=== PATIENT | male | born 1950 | race African-American/Black ===

== ENCOUNTER 2017-08-12 10:35 | Emergency (ER) | payer OTHER ==
[~2017-08-12] VITALS: Ht 170.2 cm; Wt 129.3 kg
--- NOTE | ~2017-08-12 | EKG ---
[place] [address] Code [facility] [place] [address] ELECTROCARDIOGRAM REPORT Name: FADI BOO [facility] [id number] Admission: 08/12/17 Attend Phys: Discharge: 08/12/17 Date of : 50 Report #: [id number] THIS REPORT FOR: //name// [facility] ED Test Date: 2017-08-12 Test Time: 11:37:47 Pat Name: FADI BOO Department: Room: Gender: Heel Seat Sander: Jose Juan GARSIA : 1950 Requested By: Yoselin Weller Order Number: [id number] MD: Valentin Song Measurements Intervals [place] Rate: 82 P: 67 MS: 256 QRS: 11 QRSD: 84 T: 58 QT: 391 QTc: 457 Interpretive Statements Sinus rhythm Prolonged MS interval Compared to ECG 04/21/1995 09:26:00 First degree AV block now present Electronically Signed On 08-13-2017 8:05:35 CDT by Valentin Song [email or web address] <ELECTRONICALLY SIGNED> By: Valentin Song MD, [facility] 08/13/17 [id number] Valentin Song MD, FACC /EPI
[2017-08-12 11:18] LABS: ABSOLUTE NEUTROPHILS 8.9 thou/uL (1.4-8.2); BASOPHILS 0.5 % (0.0-2.0); EOSINOPHILS 2.9 % (0.0-3.0); HEMATOCRIT 40.8 % (42.0-52.0); HEMOGLOBIN 13.5 gm/dL (14.0-18.0); LYMPHOCYTES 15.1 % (24.0-44.0); MCHC 33.2 g/dL (28.0-37.0); MCV 87.3 fL (80.0-100.0); MONOCYTES 6.4 % (1.0-8.0); PLATELET COUNT 248 thou/uL (150-400); POLYS 75.1 % (36.0-66.0); RBC 4.67 mil/uL (4.50-6.00); RDW 14.1 % (10.5-14.5); WBC 11.8 thou/uL (4.0-11.0)
[2017-08-12 11:21] LABS: ANION GAP 10 mmol/L (7-16); BUN 13 mg/dL (7-18); CALCIUM 8.5 mg/dL (8.5-10.1); CHLORIDE 103 mmol/L (98-107); CO2 27 mmol/L (21-32); CREATININE 1.6 mg/dL (0.7-1.3); GLUCOSE 276 mg/dL (74-106); POTASSIUM 3.7 mmol/L (3.5-5.1); SODIUM 140 mmol/L (136-145)
[2017-08-12 11:30] LABS: TROPONIN-I < 0.04 ng/mL (<0.06)
[2017-08-12 14:31] VITALS: BP 137/76
== END 2017-08-12 14:40 | disposition home or self-care (01) ==
LOC: ER 10:35
PROVIDERS: Emergency Medicine
DX: S81.012A Laceration without foreign body, left knee, initial encounter (principal); G40.909 Epilepsy, unspecified, not intractable, without status epilepticus; E11.9 Type 2 diabetes mellitus without complications; V89.2XXA Person injured in unspecified motor-vehicle accident, traffic, initial encounter; Y93.I9 Activity, other involving external motion; Y92.89 Other specified places as the place of occurrence of the external cause; Y99.8 Other external cause status